=== PATIENT | female | born 1995 ===

== ENCOUNTER 2021-05-22 06:11 | Inpatient (IN) | payer OTHER ==
[2021-05-22] MEDS ORDERED: DEXTROSE 5%-LACTATED RINGERS 500 ML IV ONE (06:35)
[2021-05-22] MEDS ORDERED: DEXTROSE 5%-LACTATED RINGERS 1,000 ML IV SCH (07:35)
[2021-05-22 09:05] VITALS: BMI 25.8
[2021-05-22 10:53] VITALS: TEMP 98.7
[2021-05-22 11:02] VITALS: BP 123/76; PULSE 92
[2021-05-22 12:20] LABS: EPI CELLS 32 /uL (0-25.1); HYALINE CASTS 1 /uL (0-3.1); URINE APPEARANCE CLEAR; URINE BILIRUBIN NEGATIVE (NEGATIVE); URINE COLOR RED; URINE GLUCOSE (UA) NEGATIVE (NEGATIVE); URINE KETONE NEGATIVE (NEGATIVE); URINE LEUK ESTERASE 1+ (NEGATIVE); URINE NITRITE POSITIVE (NEGATIVE); URINE PROTEIN 1+ (NEGATIVE); URINE RBC 3826 /uL (0-23.9); URINE WBC 81 /uL (0-25.8)
[2021-05-22 12:40] LABS: INR 0.94 (0.83-1.09); PROTHROMBIN TIME (PATIENT) 10.5 SEC (9.7-13.0)
[2021-05-22 12:42] LABS: ACTIVATED PTT 24.7 SECONDS (25.2-36.5)
[2021-05-22 12:44] LABS: COCAINE, UR NEGATIVE (NEGATIVE); METHADONE, UR NEGATIVE (NEGATIVE); OPIATES, URI NEGATIVE (NEGATIVE); PHENCYCLIDINE,URINE NEGATIVE (NEGATIVE); URINE AMPHETAMINES NEGATIVE (NEGATIVE); URINE BARBITURATES NEGATIVE (NEGATIVE); URINE BENZODIAZEPINES NEGATIVE (NEGATIVE)
[2021-05-22 13:09] LABS: URINE BACTERIA 1357.1 /uL (0-1359)
[2021-05-22 13:12] LABS: ALBUMIN 2.8 g/dl (3.4-5.0); BILIRUBIN,TOTAL 0.3 mg/dL (0.2-1); BLOOD UREA NITROGEN 4.6 mg/dL (7-18); CALCIUM 8.5 mg/dL (8.5-10.1); CREATININE 0.5 mg/dL (0.55-1.3); TOT PROT 6.5 g/dl (6.4-8.2)
[2021-05-24 15:45] LABS: HEPATITIS B SURFACE AG MATERN NON-REACTIVE (NONREACTIVE)
[2021-05-24 15:46] LABS: SYPHILIS W/ RPR CONF NON-REACTIVE (NONREACTIVE)
[2021-05-24 17:01] LABS: HIV INTERPRETATION NEGATIVE (NEGATIVE)
== END 2021-05-22 12:15 | disposition left against medical advice (07) | DRG 566 ==
LOC: JDEL 06:11 → JLDR 08:00
PROVIDERS: ADMIT Obstetrics & Gynecology; ATTEND Obstetrics & Gynecology
DX: O46.8X3 Other antepartum hemorrhage, third trimester (principal); Z3A.39 39 weeks gestation of pregnancy
CPT/HCPCS: 59025; 76819-TC; 80053; 80307; 81003; 85610; 85730; 86762; 86780; 87340; 87389